=== PATIENT | female | born 1990 | race Two or more races ===

== ENCOUNTER 2024-02-29 10:28 | Inpatient (IN) | payer OTHER ==
[2024-02-23 10:59] LABS: INR < 0.93; PARTIAL THROMBOPLASTIN TIME 26.8 SECONDS (22.0-34.0); PROTHROMBIN TIME 9.5 SECONDS (9.0-11.5)
[~2024-02-29] VITALS: Ht 152.4 cm; Wt 3.6 kg
[2024-02-29] MEDS ORDERED: SYNTHROID75 MCG PO (10:51)
[2024-02-29] MEDS ORDERED: PRENATAL TABLE1 EAC1 PO (10:52)
[2024-02-29] MEDS ORDERED: RINGERS SOLUTION,LACTATED 1,000 ML IV SCH (11:45)
[2024-02-29] MEDS ORDERED: MISOPROSTOL 50 MCG TABLET VAG NR (12:15)
[2024-03-01] MEDS ORDERED: OXYTOCIN 500 ML IV SCH (08:45)
[2024-03-01] MEDS ORDERED: FAMOTIDINE/PF 20 MG/2 ML VIAL IV SCH ×2 (09:00→22:18)
[2024-03-01] MEDS ORDERED: OXYTOCIN 20 UNITS/500ML RL PIGGYBAG IV ONE (09:33)
[2024-03-01] MEDS ORDERED: PROMETHAZINE HCL 25 MG/ML AMPUL IV NR (14:30)
[2024-03-01] MEDS ORDERED: MEPERIDINE HCL/PF 25 MG/ML VIAL IV NR (14:30)
[2024-03-01] MEDS ORDERED: ERYTHROMYCIN BASE 1 GM TUBE OP ONE ×2 (14:30→21:00)
[2024-03-01] MEDS ORDERED: LIDOCAINE HCL 1% 10ML VIAL ONE (14:31)
[2024-03-01] MEDS ORDERED: CHLORHEXIDINE GLUCONATE 120 ML BOTTLE TOP ONE (14:31)
[2024-03-01] MEDS ORDERED: OXYTOCIN 20 UNITS/1000ML RL PIGGYBAG IV ONE (14:31)
[2024-03-01] MEDS ORDERED: MAGNESIUM SULFATE IN WATER 4 GM/100 ML PIGGYBACK IV ONE (20:08)
[2024-03-01] MEDS ORDERED: CARBOPROST TROMETHAMINE 250 MCG/ML AMPUL IM ONE ×3 (20:37→21:00)
[2024-03-01] MEDS ORDERED: METHYLERGONOVINE MALEATE 0.2 MG/ML AMPUL ONE (20:38)
[2024-03-01] MEDS ORDERED: MISOPROSTOL 100 MCG TABLET RECTAL ONE (21:00)
[2024-03-01] MEDS ORDERED: OXYTOCIN 10 UNITS/ML VIAL IV ONE (21:00)
[2024-03-01] MEDS ORDERED: MISOPROSTOL 100 MCG TABLET ONE (21:01)
[2024-03-01] MEDS ORDERED: NALOXONE HCL 0.4 MG/ML AMPUL IM ONE (21:15)
[2024-03-01] MEDS ORDERED: CEFAZOLIN SODIUM 1,000 MG VIAL ONE (21:24)
[2024-03-01] MEDS ORDERED: MAGNESIUM SULFATE IN WATER 500 ML IV SCH (22:15)
[2024-03-01] MEDS ORDERED: OXYTOCIN 1,000 ML IV SCH (22:15)
[2024-03-01] MEDS ORDERED: CHLORHEXIDINE GLUCONATE 120 ML BOTTLE TOP SCH (22:15)
[2024-03-01] MEDS ORDERED: ERYTHROMYCIN BASE 1 GM TUBE OP SCH (22:15)
[2024-03-01] MEDS ORDERED: KETOROLAC TROMETHAMINE 30 MG VIAL IV SCH (22:17)
[2024-03-01 22:22] LABS: BASE EXCESS -14.7 mmol/l; BICARBONATE 18.4 mmol/l (23-25); SaO2 9.1 %; Tco2 20.8 mmol/l
[2024-03-01 22:27] LABS: ABG PH 6.982 (7.35-7.45)
[2024-03-01 22:28] LABS: ABG pCO2 79.6 mmHg (35-45)
[2024-03-01] MEDS ORDERED: MAGNESIUM SULFATE IN WATER 0.04 GM/ML IV.SOLN IV ONE (22:28)
[2024-03-01 22:29] LABS: o2 21 %
[2024-03-01] MEDS ORDERED: PROMETHAZINE HCL 25 MG/ML AMPUL IV PRN (22:30)
[2024-03-01] MEDS ORDERED: ONDANSETRON HCL 2 MG/ML VIAL IV PRN (22:30)
[2024-03-01] MEDS ORDERED: CEFAZOLIN SODIUM 1,000 MG VIAL IV ONE (22:30)
[2024-03-01] MEDS ORDERED: MEPERIDINE HCL/PF 25 MG/ML VIAL IV PRN (22:30)
[2024-03-01] MEDS ORDERED: MAGNESIUM SULFATE IN WATER 100 ML IV ONE (23:45)
[2024-03-01] MEDS ORDERED: OXYTOCIN 10 UNITS/ML VIAL ONE (23:52)
[2024-03-02] MEDS ORDERED: KETOROLAC TROMETHAMINE 30 MG VIAL ONE (02:39)
[2024-03-02 02:59] LABS: HEMATOCRIT 30.5 % (36.0-45.00); HEMOGLOBIN 10.7 g/dL (12.0-15.00); MEAN CELL VOLUME 88.8 fL (80.00-100.00); MEAN CORPUSCULAR HEMOGLOBIN 31.2 pg (27.00-32.0); MEAN CORPUSCULAR HGB CONC 35.1 g/dl (32.0-36.0); PLATELET COUNT 184 K/uL (150-450); RED BLOOD COUNT 3.43 M/uL (4.00-6.00); RED CELL DISTRIBUTION WIDTH 12.3 % (11.5-14.5)
[2024-03-02 03:21] LABS: ALBUMIN 2.4 gm/dL (3.4-5.0); BILIRUBIN TOTAL 0.73 mg/dL (0.3-1.2); CALCIUM 8.4 mg/dL (8.5-10.1); CREATININE SERUM 0.52 mg/dL (0.55-1.02); GFR 135.8; GLOBULINA 2.7 G/DL (2.4-3.5); POTASSIUM 3.4 mEq/L (3.5-5.1); TOTAL PROTEIN 5.1 gm/dL (6.4-8.2)
[2024-03-02] MEDS ORDERED: CEFAZOLIN SODIUM 1,000 MG VIAL ONE (04:31)
[2024-03-02] MEDS ORDERED: CEFAZOLIN SODIUM 1,000 MG VIAL IV SCH (05:00)
[2024-03-02] MEDS ORDERED: IBUprofen 800 MG TABLET PO PRN (11:15)
[2024-03-02] MEDS ORDERED: OxyCODONE HCL/APAP UD (PERCOCET) PO PRN (11:15)
[2024-03-02] MEDS ORDERED: LORazepam 2 MG/ML VIAL IV ONE (14:45)
[2024-03-02 15:06] LABS: HEMATOCRIT 25.9 % (36.0-45.00); MEAN CORPUSCULAR HGB CONC 35.2 g/dl (32.0-36.0); PLATELET COUNT 160 K/uL (150-450); RED BLOOD COUNT 2.91 M/uL (4.00-6.00); RED CELL DISTRIBUTION WIDTH 12.9 % (11.5-14.5)
[2024-03-02 15:07] LABS: HEMOGLOBIN 9.1 g/dL (12.0-15.00); MEAN CORPUSCULAR HEMOGLOBIN 31.2 pg (27.00-32.0)
[2024-03-02 15:23] LABS: ALBUMIN 2.1 gm/dL (3.4-5.0); BILIRUBIN TOTAL 0.41 mg/dL (0.3-1.2); CALCIUM 6.9 mg/dL (8.5-10.1); CREATININE SERUM 0.61 mg/dL (0.55-1.02); GFR 112.95; GLOBULINA 2.8 G/DL (2.4-3.5); POTASSIUM 3.43 mEq/L (3.5-5.1); TOTAL PROTEIN 4.9 gm/dL (6.4-8.2)
[2024-03-02 15:31] LABS: MAGNESIUM 5.2 mg/dL (1.8-2.4)
[2024-03-02] MEDS ORDERED: DOCUSATE SODIUM 100MG CAP PO SCH (17:00)
[2024-03-02] MEDS ORDERED: FAMOtidine 20 MG TABLET PO SCH (17:00)
[2024-03-02 20:52] LABS: HEMATOCRIT 27.9 % (36.0-45.00); HEMOGLOBIN 9.8 g/dL (12.0-15.00); MEAN CELL VOLUME 89.2 fL (80.00-100.00); MEAN CORPUSCULAR HEMOGLOBIN 31.4 pg (27.00-32.0); MEAN CORPUSCULAR HGB CONC 35.2 g/dl (32.0-36.0); PLATELET COUNT 195 K/uL (150-450); RED BLOOD COUNT 3.12 M/uL (4.00-6.00); RED CELL DISTRIBUTION WIDTH 13.2 % (11.5-14.5)
[2024-03-02 21:20] LABS: ALBUMIN 2.4 gm/dL (3.4-5.0); BILIRUBIN TOTAL 0.41 mg/dL (0.3-1.2); CALCIUM 7.2 mg/dL (8.5-10.1); CREATININE SERUM 0.63 mg/dL (0.55-1.02); GFR 108.83; POTASSIUM 4.02 mEq/L (3.5-5.1); TOTAL PROTEIN 5.4 gm/dL (6.4-8.2)
[2024-03-02 21:30] LABS: MAGNESIUM 5.3 mg/dL (1.8-2.4)
[2024-03-03 08:30] LABS: HEMATOCRIT 25.1 % (36.0-45.00); MEAN CELL VOLUME 90.1 fL (80.00-100.00); PLATELET COUNT 174 K/uL (150-450); RED BLOOD COUNT 2.78 M/uL (4.00-6.00); RED CELL DISTRIBUTION WIDTH 13.2 % (11.5-14.5)
[2024-03-03 08:31] LABS: HEMOGLOBIN 8.8 g/dL (12.0-15.00); MEAN CORPUSCULAR HEMOGLOBIN 31.6 pg (27.00-32.0)
[2024-03-03] MEDS ORDERED: LEVOTHYROXINE SODIUM 75 MCG TABLET PO SCH (09:00)
[2024-03-03] MEDS ORDERED: FERROUS SULFATE 325 MG TABLET.EC PO SCH (09:00)
[2024-03-03 10:06] LABS: BILIRUBIN TOTAL 0.28 mg/dL (0.3-1.2); CALCIUM 7.7 mg/dL (8.5-10.1); CREATININE SERUM 0.42 mg/dL (0.55-1.02); GFR 173.76; GLOBULINA 2.6 G/DL (2.4-3.5); POTASSIUM 3.95 mEq/L (3.5-5.1); TOTAL PROTEIN 4.6 gm/dL (6.4-8.2)
[2024-03-04 10:11] LABS: BILIRUBIN TOTAL 0.31 mg/dL (0.3-1.2); CALCIUM 8.6 mg/dL (8.5-10.1); CREATININE SERUM 0.45 mg/dL (0.55-1.02); GFR 160.46; GLOBULINA 2.6 G/DL (2.4-3.5); POTASSIUM 4.15 mEq/L (3.5-5.1); TOTAL PROTEIN 4.6 gm/dL (6.4-8.2)
== END 2024-03-05 18:33 | disposition home or self-care (01) | DRG 787 ==
LOC: LDR 10:28 → OB/GYN 03-01 09:00 → LDR 03-02 07:39 → OB/GYN 03-02 09:51 → LDR 03-02 10:54 → OB/GYN 03-02 22:18
PROVIDERS: ADMIT General Practice; ATTEND General Practice
PROC: 3E0P7VZ Introduction of Hormone into Female Reproductive, Via Natural or Artificial Opening (ICD-10-PCS; 2024-02-29)
PROC: 4A1HXCZ Monitoring of Products of Conception, Cardiac Rate, External Approach (ICD-10-PCS; 2024-02-29)
PROC: 3E033VJ Introduction of Other Hormone into Peripheral Vein, Percutaneous Approach (ICD-10-PCS; 2024-03-01)
PROC: 10D00Z1 Extraction of Products of Conception, Low, Open Approach (ICD-10-PCS; principal; 2024-03-01 20:30)
PROC: B020ZZZ Computerized Tomography (CT Scan) of Brain (ICD-10-PCS; 2024-03-03)
DX: O15.1 Eclampsia complicating labor (principal); O99.355 Diseases of the nervous system complicating the puerperium; R56.9 Unspecified convulsions; Z3A.39 39 weeks gestation of pregnancy; Z37.0 Single live birth; Z20.822 Contact with and (suspected) exposure to COVID-19